=== PATIENT | female | born 1990 | race Caucasian/White ===

== ENCOUNTER 2022-01-21 07:25 | Outpatient (CLI) | payer BC, SELFPAY ==
--- OUTSIDE RECORDS SUMMARY | 2022-01-21 07:42 | XMS_ITS | Clinical Summary ---
:1990 Author Organization [facility] [place] [address] Care Team Providers Name Role Phone Pcp, No Primary Care Provider Unavailable Allergies Active Allergy Reactions Severity Noted Date Comments Ibuprofen Hives Medium 05/26/2021 Medications Medication Sig Dispensed Refills Start Date End Date Status escitalopram oxalate Take 1 Tablet (10 0 05/26/2021 Active (LEXAPRO) 10 mg tablet mg) by mouth every morning. buPROPion 75 mg tablet Take 1 Tablet (75 0 2 Active mg) by mouth 2 times daily. Based on updated ISMP guidelines, DO NOT crush or chew. norgestimate-ethinyl Take 1 Tablet by 28 Tablet 0 05/26/2021 Active estradiol, 0.25-35 mouth once daily. mg-mcg, (ORTHO-CYCLEN) 0.25-35 mg-mcg tablet Active Problems No known active problems Social History Tobacco Use Types Packs/Day Years Used Date Never Smoker Smokeless Tobacco: Never Used Sex Assigned at Date Recorded Not on file Obstetrics History Last Filed Vital Signs Vital Sign Reading Time Taken Comments Blood Pressure 132/68 05/26/2021 9:12 AM DESK REPORTER Pulse 100 05/26/2021 9:47 AM DESK REPORTER Temperature 37.2 ??C (99 ??F) 05/26/2021 9:12 AM DESK REPORTER Respiratory Rate 18 05/26/2021 9:12 AM DESK REPORTER Oxygen Saturation 97% 05/26/2021 9:12 AM DESK REPORTER Inhaled Oxygen Concentration - - Weight 64.9 kg (143 lb) 05/26/2021 9:12 AM DESK REPORTER Height - - Body Mass Index - - Plan of Treatment Health Maintenance Due Date Last Done Comments COVID-19 vaccine series (#1) 04/27/1991 Tdap 2001 Depression screening for age 12+ 2002 BMI (ht and wt on same day) for age 18+ 2008 Hepatitis C screening for age 18-79 2008 Tetanus booster 2010 Pap test for age 21-65 11/24/2021 11/24/2018 Influenza for age 9-49 01/24/2022 Results Not on filefrom Last 3 Months Insurance Payer Benefit Plan / Subscriber ID Effective Dates Phone Addre ss Type Group BLUE [employer]OSS BL[employer] OF [id number] 2019-Present [address] [place] [address] [facility] Employer 05/26/2000 A [employer]TN A/P ADVANTAGE (Home) [address] [place] [address] Care Teams Pharmaceutical Officer Relationship Specialty Start Date End Date Pcp, No PCP - General 06/15/13 .
[2022-01-21 09:35] LABS: Cholesterol* 265 mg/dL (90-199)
[2022-01-21 09:36] LABS: HDL Cholesterol* 49 mg/dL (>=50); LDL Cholesterol Calculated 154 mg/dL (<100); Triglycerides* 309 mg/dL (40-149)
[2022-01-22 14:31] LABS: Glucose* 88 mg/dL (60-115)
== END 2022-01-21 07:26 | disposition home or self-care (01) ==
PROVIDERS: PCP Family Medicine; Visit Provider Family Medicine
DX: Z01.419 Encounter for gynecological examination (general) (routine) without abnormal findings (principal); E78.5 Hyperlipidemia, unspecified; F41.9 Anxiety disorder, unspecified; F32.9 Major depressive disorder, single episode, unspecified; Z13.29 Encounter for screening for other suspected endocrine disorder
CPT/HCPCS: 80061; 82947; 84443

== ENCOUNTER 2023-01-22 07:45 | Outpatient (CLI) | payer BC, SELFPAY | END 2023-01-22 07:46 | disposition home or self-care (01) | LOC: NFLDREF 10:38 | PROVIDERS: PCP Family Medicine; Referring Provider Family Medicine; Visit Provider Family Medicine | DX: E78.5 Hyperlipidemia, unspecified (principal); R53.83 Other fatigue; Z13.1 Encounter for screening for diabetes mellitus | CPT/HCPCS: 80061; 82947; 84443 ==

== ENCOUNTER 2023-07-28 08:11 | Outpatient (CLI) | payer BC, SELFPAY | END 2023-07-28 08:12 | disposition home or self-care (01) | LOC: NFLDREF 08-10 08:14 | PROVIDERS: PCP Family Medicine; Referring Provider Family Medicine; Visit Provider Family Medicine | DX: E78.5 Hyperlipidemia, unspecified (principal) | CPT/HCPCS: 80061 ==

== ENCOUNTER 2024-02-04 07:50 | Outpatient (CLI) | payer BC, SELFPAY ==
--- OUTSIDE RECORDS SUMMARY | 2024-02-09 07:07 | XMS_ITS | Clinical Summary ---
Author Organization [facility] Address [place], [place] [address] Care Team Providers Care Streetcar Operator Name Role Phone Pcp, No Primary Care Provider Unavailabl e Allergies Active Allergy Reactions Criticality Noted Date Comments Ibuprofen Hives Medium 05/26/2021 Medications Medication Sig Dispensed Refills Start Date End Date Status escitalopram oxalate (LEXAPRO) 10 mg tablet Take 1 Tablet (10 mg) by mouth every morning. 0 05/26/2021 Active buPROPion 75 mg tablet Take 1 Tablet (75 mg) by mouth 2 times daily. Based on updated ISMP guidelines, DO NOT crush or chew. 0 05/26/2021 Active norgestimate-ethinyl estradiol, 0.25-35 mg-mcg, (ORTHO-CYCLEN) 0.25-35 mg-mcg tablet Take 1 Tablet by mouth once daily. 28 Tablet 05/26/2021 Active Active Problems No known active problems Social History Tobacco Use Types Packs/Day Years Used Date Smoking Tobacco: Never Smokeless Tobacco: Never Sex and Gender Information Value Date Recorded Sex Assigned at Not on file Gender Identity Not on file Sexual Orientation Not on file Obstetrics History Last Filed Vital Signs Vital Sign Reading Time Taken Comments Blood Pressure 132/68 05/26/2021 9:12 AM COO & CO FOUNDER Pulse 100 05/26/2021 9:47 AM COO & CO FOUNDER Temperature 37.2 ??C (99 ??F) 05/26/2021 9:12 AM COO & CO FOUNDER Respiratory Rate 18 05/26/2021 9:12 AM COO & CO FOUNDER Oxygen Saturation 97% 05/26/2021 9:12 AM COO & CO FOUNDER Inhaled Oxygen Concentration - - Weight 64.9 kg (143 lb) 05/26/2021 9:12 AM COO & CO FOUNDER Height - - Body Mass Index - - Plan of Treatment Health Maintenance Due Date Last Done Comments Tdap 2001 Depression screening for age 12+ 2002 HIV for age 15-65 2005 BMI (ht and wt on same day) for age 18+ 2008 Hepatitis C screening for ag e 18-79 2008 Tetanus booster 2010 COVID-19 vaccine series (2022- season) 2024 Influenza for age 9-49 01/25/2024 Pap test for age 21-65 01/23/2025 , 01/23/2022, 11/24/2018 Pneumococcal series for age 6-64 Aged Out No longer eligible b ased on patient's age to complete this topic Procedures Procedure Name Priority Date/Time Associated Diagnosis Comments HPV HIGH RISK Routine 01/23/2022 7:30 AM CDT from Last 3 Months or Most Recently Relevant to Health Maintenance Results * HPV HIGH RISK (01/23/2022 7:30 AM CDT) TYPE 16 Negative Negative 01/29/2022 11:19 AM CDT [facility] TYPE 18 Negative Negative 01/29/2022 11:19 AM CDT [facility] OTHER HIGH RISK TYPES Negative Negative 01/29/2022 11:19 AM CDT [facility] Other SPECIMEN FROM VAGINA / Unknown 01/23/2022 7:30 AM CDT 01/24/2022 4:42 PM CDT Narrative [facility] - 01/29/2022 11:19 AM CDT HPV types 16, 18, 31, 33, 35, 39, 45, 51, 52, 56, 58, 59, 66 and 68 DNA were undetectable or below the pre-set threshold. Methodology: Brit Devonte 4800 HPV Test Doctor Unknown MICROBIOLOGY [facility] [address] [place] [address], from Last 3 Months or Most Recently Relevant to Health Maintenance Care Teams Streetcar Operator Relationship Specialty Start Date End Date Pcp, No . PCP - General 06/15/13
== END 2024-02-04 07:51 | disposition home or self-care (01) ==
LOC: NFLDREF 02-09 07:05
PROVIDERS: PCP Family Medicine; Referring Provider Family Medicine; Visit Provider Family Medicine
DX: E78.5 Hyperlipidemia, unspecified (principal); R73.01 Impaired fasting glucose
CPT/HCPCS: 80053; 80061

== ENCOUNTER 2024-04-02 19:05 | Outpatient (CLI) | payer OTHER, SELFPAY ==
--- OUTSIDE RECORDS SUMMARY | 2024-04-21 09:02 | XMS_ITS | Clinical Summary ---
Author Organization [facility] [place] [address] Care Team Providers Care Greaser And Oiler Name Role Phone Pcp, No Primary Care [...] Comments Blood Pressure 132/68 05/26/2021 9:12 AM SHOOTER HELPER Pulse 100 05/26/2021 9:47 AM SHOOTER HELPER Temperature 37.2 C (99 F) 05/26/2021 9:12 AM SHOOTER HELPER Respiratory Rate 18 05/26/2021 9:12 AM SHOOTER HELPER Oxygen Saturation 97% 05/26/2021 9:12 AM SHOOTER HELPER Inhaled Oxygen Concentration - - Weight 64.9 kg (143 lb) 05/26/2021 9:12 AM SHOOTER HELPER Height - - Body Mass Index - - Plan of Treatment Health Maintenance Due Date Last Done Comments Tdap 2001 Depression screening for age 12+ 2002 HIV for age 15-65 2005 BMI (ht and wt on same day) for age 18+ 2008 Hepatitis C screening for ag e 18-79 2008 Tetanus booster 2010 COVID-19 vaccine series (2023-25 season) 2024 Influenza for age 9-49 01/25/2024 [...] 16 Negative Negative 01/29/2022 11:19 AM CDT [facility] TYPE 18 Negative Negative 01/29/2022 11:19 AM CDT [facility] OTHER HIGH RISK TYPES Negative Negative 01/29/2022 11:19 AM CDT [facility] Other SPECIMEN FROM VAGINA / Unknown 01/23/2022 7:30 AM CDT 01/24/2022 4:42 PM CDT Narrative [facility] - 01/29/2022 11:19 AM CDT HPV types 16, 18, 31, 33, 35, 39, 45, 51, 52, 56, 58, 59, 66 and 68 DNA were undetectable or below the pre-set threshold. Methodology: Brit Devonte 4800 HPV Test Doctor Unknown [facility] [address] [place] [address], [place] from Last 3 Months or Most Recently Relevant to Health Maintenance Care Teams Greaser And Oiler Relationship Specialty Start Date End Date Pcp, No . PCP - General 06/15/13
== END 2024-04-02 19:06 | disposition home or self-care (01) ==
LOC: AMB 04-21 09:00
PROVIDERS: PCP Family Medicine; Visit Provider Student in an Organized Health Care Education/Training Program
DX: S09.93XA Unspecified injury of face, initial encounter (principal); V49.49XA Driver injured in collision with other motor vehicles in traffic accident, initial encounter; Y92.410 Unspecified street and highway as the place of occurrence of the external cause
CPT/HCPCS: A0998

== ENCOUNTER 2024-05-18 08:00 | Outpatient (RCR) | payer OTHER, BC, SELFPAY | END 2024-07-29 09:33 | disposition home or self-care (01) | PROVIDERS: PCP Family Medicine; Visit Provider Family Medicine | DX: S13.4XXA Sprain of ligaments of cervical spine, initial encounter (principal); M54.2 Cervicalgia; Z51.89 Encounter for other specified aftercare | CPT/HCPCS: 97110; 97112; 97140; 97161 ==

== ENCOUNTER 2025-03-04 15:58 | Outpatient (CLI) | payer BC, SELFPAY | END 2025-03-04 15:59 | disposition home or self-care (01) | PROVIDERS: PCP Family Medicine; Visit Provider Family Medicine | DX: F41.9 Anxiety disorder, unspecified (principal) | CPT/HCPCS: 80053; 80061; 84443 ==

== ENCOUNTER 2025-03-29 07:53 | Outpatient (CLI) | payer BC, SELFPAY | END 2025-03-29 07:54 | disposition home or self-care (01) | LOC: NFLDREF 03-31 15:42 | PROVIDERS: PCP Family Medicine; Referring Provider Family Medicine; Visit Provider Family Medicine | DX: E78.5 Hyperlipidemia, unspecified (principal); R73.03 Prediabetes | CPT/HCPCS: 80061 ==